=== PATIENT | female | born 1945 | race Caucasian/White ===

== ENCOUNTER 2022-11-20 09:04 | Outpatient (OUT) | payer MEDICARE, SELFPAY ==
[2022-11-20 09:32] LABS: Basophils Absolute Auto 0.1 10^3/uL (0.0-0.1); Eosinophils Absolute Auto 0.2 10^3/uL (0.0-0.7); Eosinophils Percent Auto 3.9 % (0.9-7.0); Hematocrit 36.1 % (36.0-48.0); Hemoglobin 11.9 g/dL (12.0-16.0); Immature Granulocytes Abs Auto 0.01 10^3/uL (0.00-0.03); Immature Granulocytes Pct Auto 0.2 % (0.0-0.5); Lymphocytes Absolute Auto 1.9 10^3/uL (1.2-3.8); Lymphocytes Percent Auto 38.9 % (20.5-60.0); Mean Corpuscular Hemoglobin 31.3 pg (26.7-34.0); Mean Platelet Volume 9.3 fL (9.5-13.5); Monocytes Absolute Auto 0.5 10^3/uL (0.3-0.8); Neutrophils Absolute Auto 2.2 10^3/uL (1.4-6.5); Platelet Count 220 10^3/uL (150-450); Red Cell Distribution Width 12.1 % (11.0-15.0); White Blood Count 4.8 10^3/uL (4.0-11.0)
[2022-11-20 10:19] LABS: Alanine Aminotransferase 27 U/L (14-59); Albumin Globulin Ratio 1.1; Albumin Level 3.7 g/dL (3.4-5.0); Alkaline Phosphatase 66 U/L (46-116); Anion Gap 9.4; Aspartate Amino Transferase 21 U/L (15-37); BUN Creatinine Ratio 24.4; Bilirubin Direct 0.1 mg/dL (0.0-0.2); Bilirubin Total 0.7 mg/dL (0.2-1.0); Calcium 8.9 mg/dL (8.5-10.1); Carbon Dioxide 29.8 mmol/L (21.0-32.0); Chloride 104 mmol/L (98-107); Chol HDL Ratio 3.5; Cholesterol 152 mg/dL (<=200); Estimated GFR (African America >60 (>=60); Estimated GFR (Non-African Ame >60 (>=60); Globulin 3.5 g/dL; Glucose 91 mg/dL (74-106); HDL Cholesterol 44 mg/dL (40-60); Potassium 4.2 mmol/L (3.5-5.1); Sodium 139 mmol/L (136-145); Thyroid Stimulating Hormone 0.581 uIU/mL (0.358-3.740); Total Protein 7.2 g/dL (6.4-8.2); Triglycerides 35 mg/dL (<=150)
== END 2022-11-20 09:05 | disposition home or self-care (01) ==
LOC: LAB 09:10
PROVIDERS: PCP Family Medicine; Visit Provider Family Medicine
DX: Z79.899 Other long term (current) drug therapy (principal); Z13.220 Encounter for screening for lipoid disorders; R00.2 Palpitations
CPT/HCPCS: 36415; 80048; 80061; 80076; 84443; 85025

== ENCOUNTER 2024-12-10 08:11 | Outpatient (OUT) | payer MEDICARE, SELFPAY ==
--- OUTSIDE RECORDS SUMMARY | 2024-12-10 08:16 | XMS_ITS | Encounter Summary ---
Author Organization [facility] Address [address] [place] [address] Care Team Providers Care Wire Weaver Helper Name Role Phone Tomas Gomez MD Primary Care Provider [phone] Tomas Gomez MD Primary Care Provider [phone] Encounter Details Date Type Department Care Team (Late st Contact Info) Description 11/20/2022 Abstract [facility] [address] [place] [address] Mely Salas MD [address] [place] [address] Social History Tobacco Use Types Packs/Day Years Used Date Smoking Tobacco: Never Smokeless Tobacco: Never Tobacco Cessation:Counseling Given: Not Answered Comments Unknown Sex and Gender Information Value Date Recorded Sex Assigned at Female 12/26/2022 10:22 AM EDT Legal Sex Female 7:10 PM EDT Gender Identity Female 07/02/2022 7:10 PM EDT Sexual Orientation Straight 12/26/2022 10 :22 AM EDT documented as of this encounter Plan of Treatment Upcoming Encounters Date Type Department Care Team (Late st Contact Info) Description 12/13/2024 10:45 AM EDT Office Visit [facility] [address] [place] [phone] Tomas Gomez MD [address] [place] [address] 06/06/2025 10:30 AM EST Office Visit [facility] [place] [facility] [address] [place] [address] Shonda Paz DO [address] [place] [address] 08/16/2025 10:05 AM EDT Office Visit [facility] [place] [facility] [address] [place] [address] Mely Salas MD [address] [place] [address] documented as of this encounter Visit Diagnoses Not on filedocumented in this encounter Care Teams Wire Weaver Helper Relationship Specialty Start Date End Date Tomas Gomez MD PCP - General Family Medicine 04/20/22 06/01/23 Tomas Gomez MD [address] [place] [address] PCP - General Family Medicine 06/02/23 documented as of this encounter
--- OUTSIDE RECORDS SUMMARY | 2024-12-10 08:16 | XMS_ITS | Clinical Summary ---
Author Organization [employer] [facility] tem Address [id number] [place] [address] Care Team Providers Care Physics Teacher Name Role Phone Tomas Gomez MD Primary Care Provider [phone] Family History Medical History Relation Name Comments Breast cancer Neg Hx Social History Tobacco Use Types Packs/Day Years Used Date Smoking Tobacco: Never Assessed Childcare Answer Date Recorded Childcare Unknown 09/29/2018 Employment Answer Date Recorded Employment Unknown 09/29/2018 Purpose - Life Answer Date Recorded Purpose and direction in life Unknown Comments No Sex and Gender Information Value Date Recorded Sex Assigned at Not on file Legal Sex Female 11:41 AM EDT Gender Identity Not on file Sexual Orientation Not on file Last Filed Vital Signs Vital Sign Reading Time Taken Comments Blood Pressure - - Pulse - - Temperature - - Respiratory Rate - - Oxygen Saturation - - Inhaled Oxygen Concentration - - Weight 54.4 kg (120 lb) 06/11/2023 8:46 AM EST Height 165.1 cm (5' 5 ) 06/11/2023 8:46 AM EST Body Mass Index 19.97 06/11/2023 8:46 AM EST Plan of Treatment Health Maintenance Due Date Last Done Comments Depression Screening 1957 Tobacco Screening 1957 Fall Risk Screening 09/02/2011 Zoster (Shingles) Vaccine (2 of 3) 08/21/2012 06/26/2012 COVID-19 Vaccine (2023-2 5 season) 2024 03/09/2024, 03/16/2023, 02/05/2022, Additional history exists Influenza Vaccine 12/19/2024 03/09/2024, , 02/05/2022, Additional history exists DTaP,Tdap and Td Vaccines (2 - Td or Tdap) 11/20/2031 11/19/2021 Medical Devices Not on file Insurance [facility] MEDICARE Care Teams Physics Teacher Relationship Specialty Start Date End Date Tomas Gomez MD PCP - General Family Medicine 02/15/18
--- OUTSIDE RECORDS SUMMARY | 2024-12-10 08:16 | XMS_ITS | Clinical Summary ---
Author Organization [facility] Address [address] [place] [address] Care Team Providers Care Control Systems Specialist Name Role Phone Tomas Gomez MD Primary Care Provider [phone] Allergies Active Allergy Reactions Criticality Noted Date Comments Aspirin Unknown 10/23/2022 Ciprofloxacin Anaphylaxis,Unknown High 11/25/2016 Pain, vaginal infection, personality change Minocycline Hcl Er Unknown 10/23/2022 Irregular heart rate Penicillins Hives,Unknown 11/25/2016 Rash Medications cyanocobalamin (Vitamin B-12) 100 MCG tablet Take 100 mcg by mouth Daily Active co-enzyme Q-10 30 MG capsule Take 30 mg by mouth Daily Active Active Problems Problem Noted Date Diagnosed Date Osteopenia of lumbar spine 06/24/2024 Medicare annual wellness visit, subsequent 06/14 Assessment & Plan (06/14/2024 12:03 PM EST): Reviewed labs. Discussed proper diet and regular aerobic exercise. Need aerobic exercise 5-6 days a week for 30 minutes at a time. Smaller portions and limit total calories. Tetanus every 10 years. Advised not to smoke. Chronic left hip pain 06/14/2024 Assessment & Plan (06/14/2024 12:03 PM EST): Pain likely relate to lumbar pathology. Check x-ray. Discussed PT but declined. Use OTC PRN. Encounter for long-term current use of medicatio n 12/03/2023 Cervical stenosis of spine 06/10/2023 Assessment & Plan (12/07/2023 9:53 AM EDT): Mild pain but tolerable with OTC and continue. Increase activity and walk regularly. Assessment & Plan (06/10/2023 2:26 PM EST): Mild pain but tolerable with OTC and continue. Increase activity and walk regularly. Degenerative lumbar spinal stenosis 06/10/2023 Assessment & Plan (06/14/2024 12:03 PM EST): Pain likely relate to lumbar pathology. Check x-ray. Discussed PT but declined. Use OTC PRN. Assessment & Plan (12/07/2023 9:53 AM EDT): Mild pain but tolerable with OTC and continue. Increase activity and walk regularly. Assessment & Plan (06/10/2023 2:26 PM EST): Mild pain but tolerable with OTC and continue. Increase activity and walk regularly. Heart palpitations 06/10/2023 Idiopathic thrombocytopenic purpura 06/10/2023 Prurigo nodularis 06/10/2023 Allergic rhinitis due to pollen 06/10/2023 Assessment & Plan (12/07/2023 9:53 AM EDT): Symptoms controlled with medication and continue. Assessment & Plan (06/10/2023 2:25 PM EST): Symptoms controlled with medication and continue. Resolved Problems Problem Noted Date Diagnosed Date Resolved Date Retrolisthesis 06/10/2023 06/14/2024 Weakness 06/10/2023 06/14/2024 Encounters Date Type Department Care Team Description 11/29/2024 Telephone [facility] [address] [place] [address] Tomas Gomez MD from Last 3 Months Family History Medical History Relation Name Comments Lung cancer Father Coronary artery disease Mother Dementia Mother Hypertension Mother Thyroid disease Mother resting angina Mother Diabetes Son Melanoma Neg Hx Relation Name Status Comments Father Mother Son Social History Tobacco Use Types Packs/Day Years Used Date Smoking Tobacco: Never Smokeless Tobacco: Never Tobacco Cessation:Counseling Given: Not Answered Alcohol Use Standard Drinks/Week Comments Never 0 (1 standard drink = 0.6 oz pur e alcohol) Caffeine intake: none B1300 Health Literacy Answer Date Recor ded How often do you need to hav e someone help you when you read instructions, pamphlets, or other written material from your doctor or pharmacy? Never 06/12/2024 Social Connection and Isolat ion Panel [NHANES] Answer Date Recorded In a typical week, how many times do you talk on the phone with family, friends, or neighbors? Three times a week 06/12/2024 How often do you get togethe r with friends or relatives? Once a week 06/12/2024 How often do you attend [facility] or methodist services? More than 4 times per year 06/12/2024 Do you belong to any clubs o r organizations such as gnosticism groups, unions, fraternal or athletic groups, or school groups? No 06/12/2024 Attends Club or Organization Meetings Not on gisell e 06/12/2024 Are you , , di vorced, , never , or living with a partner? 06/12/2024 AUDIT-C Answer Date Recorded Q1: How often do you have a drink containing alcohol? Never 06/12/2024 Q2: How many drinks containi ng alcohol do you have on a typical day when you are drinking? Patient does not drink Q3: How often do you have si x or more drinks on one occasion? Never 06/12/2024 Overall Financial Resource Strain (CARDIA) Answe r Date Recorded How hard is it for you to pa y for the very basics like food, housing, medical care, and heating? Not hard at all 06/12/2024 PHQ-2 Answer Date Recorded Patient Health Questionnaire-2 Score 1 06/14/2024 [facility] Occupat ional Health - Occupational Stress Questionnaire Answer Date Recorded Do you feel stress - tense, restless, nervous, or anxious, or unable to sleep at night because your mind is troubled all the time - these days? Only a little 06/12/2024 Exercise Vital Sign Answer Date Recorde d On average, how many days pe r week do you engage in moderate to strenuous exercise (like a brisk walk)? 5 days 06/12/2024 On average, how many minutes do you engage in exercise at this level? 20 min 06/12/2024 Hunger Vital Sign Answer Date Recorded Within the past 12 months, y ou worried that your food would run out before you got the money to buy more. Never true 06/12/19 25 Ran Out of Food in the Last Year Not on file 06/12/2024 PRAPARE - Transportation Answer Date Re corded In the past 12 months, has l ack of transportation kept you from medical appointments or from getting medications? No 05/22 In the past 12 months, has l ack of transportation kept you from meetings, work, or from getting things needed for daily living? No 06/12/2024 Housing Stability Vital Sign Answer Jesse e Recorded In the last 12 months, was t here a time when you were not able to pay the mortgage or rent on time? No 06/04/2023 In the last 12 months, how many places have you lived? 1 06/04/2023 In the last 12 months, was t here a time when you did not have a steady place to sleep or slept in a residential (including now)? No 06/04/2023 Housing Stability Vital Sign Answer Jesse e Recorded In the last 12 months, was t here a time when you were not able to pay the mortgage or rent on time? No 06/12/2024 In the past 12 months, how m any times have you moved where you were living? 0 06/12/2024 At any time in the past 12 m [facility], were you homeless or living in a residential (including now)? No 06/12/2024 Comments Unknown Sex and Gender Information Value Date Recorded Sex Assigned at Female 12/26/2022 10:22 AM EDT Legal Sex Female 7:10 PM EDT Gender Identity Female 07/02/2022 7:10 PM EDT Sexual Orientation Straight 12/26/2022 10 :22 AM EDT Last Filed Vital Signs Vital Sign Reading Time Taken Comments Blood Pressure 100/54 06/14/2024 10:59 AM EST Pulse 61 06/14/2024 10:59 AM EST Temperature 35.8 C (96.4 F) 06/14/2024 10:59 AM EST Respiratory Rate 20 06/14/2024 10:59 AM EST Oxygen Saturation 99% 06/14/2024 10:59 AM EST Inhaled Oxygen Concentration - - Weight 52.2 kg (115 lb) 06/14/2024 10:59 AM EST Height 166.4 cm (5' 5.5 ) 06/14/2024 10:59 AM ES T Body Mass Index 18.85 06/14/2024 10:59 AM EST Plan of Treatment Upcoming Encounters Date Type Department Care Team (Late st Contact Info) Description 12/13/2024 10:45 AM EDT Office Visit [facility] [address] [place] [address] Tomas Gomez MD [address] [place] [address] 06/06/2025 10:30 AM EST Office Visit [facility] [address] [place] [address] Shonda Paz DO [address] [place] [address] 08/16/2025 10:05 AM EDT Office Visit [facility] [address] [place] [address] Mely Salas MD [address] [place] [address] Health Maintenance Due Date Last Done Comments Skin Cancer Screening 09/02/1946 Influenza Vaccine (#1) 2024 3, 02/05/2022, 01/09/2021, Additional history exists Medicare Annual Wellness (AWV) 06/14/2025 06/14/2024 , 05/12/2024 Pneumococcal Vaccine: 65+ Years Completed 0, 02/02/2019 Insurance MEDICARE [facility] Care Teams Control Systems Specialist Relationship Specialty Start Date End Date Tomas Gomez MD [address] [place] [address] PCP - General Family Medicine 06/02/23
--- OUTSIDE RECORDS SUMMARY | 2024-12-10 08:16 | XMS_ITS | Encounter Summary ---
Author Organization [facility] Address [address] [place] [address] Care Team Providers Care Hand Cigar Making Supervisor Name Role Phone Tomas Gomez MD Primary Care Provider [phone] Encounter Details Date Type Department Care Team (Late st Contact Info) Description 06/23/2024 External Result Encounter [facility] External Department Unsolicited Tomas Gomez MD [address] [place] [address] Social History Tobacco Use Types Packs/Day Years Used Date Smoking Tobacco: Never Smokeless Tobacco: Never Alcohol Use Standard Drinks/Week Comments Never 0 [...] week 06/12/2024 How often do you attend chur ch or yarsani services? More than 4 times per year [...] Recorded Patient Health Questionnaire-2 Score 1 06/14/2024 [facility]at ional Health - Occupational Stress [...] place to sleep or slept in a penitentiary (including now)? No 06/04/2023 Housing Stability Vital Sign Answer Jesse e Recorded In the last 12 months, was t here a time when you were not able to pay the mortgage or rent on time? No 06/12/2024 In the past 12 months, how m any times have you moved where you were living? 0 06/12/2024 At any time in the past 12 m [facility], were you homeless or living in a penitentiary (including now)? No 06/12/2024 Comments Unknown Sex [...] Office Visit [facility] [address] [place] [address] Tomas Gomez MD [address] [place] [address] 06/06/2025 10:30 AM EST Office Visit [facility] [address] [place] [address] Shonda Paz DO [address] [place] [address] 08/16/2025 10:05 AM EDT Office Visit [facility] [address] [place] [address] Mely Salas MD [address] [place], [place] [phone] documented as of this encounter Procedures Procedure Name Priority Date/Time Associated Diagnosis Comments XR LUMBAR SPINE 2-3 VIEWS 06/23/2024 5:09 PM EST documented in this encounter Results * XR lumbar spine 2 or 3 views (06/23/2024 5:09 PM EST) Anatomical Region Laterality Modality Spine, L-spine Radiographic Kallie ging 06/23/2024 5:09 PM EST Impressions 06/23/2024 5:14 PM EST OSTEOPENIA, SCOLIOSIS AND DEGENERATIVE CHANGES, DESCRIBED. Impression dictated by: Sissy Sy M.D.06/23/2024 5:12 PM Dictation Location: [place] [address] Transcribed By: [facility] 06/23/241711 Dictated By: Sissy Sy MD 06/23/241708 Signed By: <Electronically signed by MD Sissy Sy in OV> 06/23/24 171 Narrative 06/23/2024 5:14 PM EST [facility] [place] [address] [place] [address] XRay Report Signed Patient: Rylee Ruiz MR#: [id number] : 1945 Acct:[id number] Age/Sex: 78 / F ADM Date: 06/23/24 Loc: XD Room: Type: [facility] Attending Dr: Tomas Gomez MD Copies to: Tomas Gomez MD Ordering Provider: Tomas Gomez MD Date of Service: 06/23/24 XR/XR lumbar spine 2-3V*: M48.061 LUMBAR SPINE - 2 views COMPARISON: None CLINICAL DATA: Left hip tingling and intermittent radiation down the leg. No reported injury. Standing AP and lateral views were obtained. There is osteopenia. There is slight levoscoliotic curvature. There is also slight reversal the normal lumbar lordosis. There are minimal retrolisthesis of L2 on L3. There is approximately 5 mm retrolisthesis of L3 on L4 and 6 mm retrolisthesis of L4 and L5. No acute compression fractures are identified. There is disc space narrowing at L3-4 and L4-5, as well as to a lesser extent at L2-3. Endplate spurring is present. There is lower lumbar facet disease. The SI joints are intact. No paraspinal soft tissue abnormalities are seen. XR/XR lumbar spine 2-3V* Procedure Note Radiology, Radiologist, - 06/23/2024 [facility] [place] [address] [place] [address] XRay Report Signed Patient: Rylee Ruiz KMR#: [id number] : 7Acct:[id number] Age/Sex: 78 / FADM Date: 06/23/24 Loc: XD Room:Type: [facility] Attending Dr: Tomas Gomez MD Copies to: Tomas Gomez MD Ordering Provider: Tomas Gomez MD Date of Service: 06/23/24 XR/XR lumbar spine 2-3V*: M48.061 LUMBAR SPINE - 2 views COMPARISON: None CLINICAL DATA: Left hip tingling and intermittent radiation down the leg.No reported injury. Standing AP and lateral views were obtained. There is osteopenia. Thereis slight levoscoliotic curvature. There is also slight reversal the normal lumbar lordosis.There are minimal retrolisthesis of L2 on L3. There is approximately 5 mm retrolisthesis ofL3 on L4 and 6 mm retrolisthesis of L4 and L5. No acute compression fractures areidentified. There is disc space narrowing at L3-4 and L4-5, as well as to a lesser extent at L2-3.Endplate spurring is present. There is lower lumbar facet disease. The SI joints are intact. Noparaspinal soft tissue abnormalities are seen. XR/XR lumbar spine 2-3V* IMPRESSION: OSTEOPENIA, SCOLIOSIS AND DEGENERATIVE CHANGES, DESCRIBED. Impression dictated by: Sissy Sy M.D.06/23/2024 5:12 PM Dictation Location: [place] [address] Transcribed By: [facility] 06/23/24 171 Dictated By: Sissy Sy MD 06/23/24 170 Signed By: <Electronically signed by MD Sissy Sy in OV> 06/23/24 171 us Tomas Gomez MD IMG XR PROCEDURES Final Result documented in this encounter Visit Diagnoses Not on filedocumented in this encounter Additional Health Concerns Assessment Noted Time PHQ-9 Depression Total Score: 4 06/14/19 25 11:00 AM EST documented as of this encounter Care Teams Hand Cigar Making Supervisor Relationship Specialty Start Date End Date Tomas Gomez MD [address] [place] [address] PCP - General Family Medicine 06/02/23 documented as of this encounter
--- OUTSIDE RECORDS SUMMARY | 2024-12-10 08:16 | XMS_ITS | Encounter Summary ---
Author Organization [facility] Address [address] [place] [address] Care Team Providers Care Gas Tender Name Role Phone Tomas Gomez MD Primary Care Provider [phone] Encounter Details Date Type Department Care Team (Late st Contact Info) Description 11/29/2024 Telephone [facility] [address] [place] [address] Tomas Gomez MD [address] [place] [address] Social History Tobacco Use Types Packs/Day Years [...] often do you attend chur ch or samaritan services? More than 4 times per year 06/12/2024 Do you belong to any clubs o r organizations such as rastafarian groups, unions, fraternal or athletic groups, or [...] Recorded Patient Health Questionnaire-2 Score 1 06/14/2024 [facility] Occupat ional Health - Occupational Stress [...] place to sleep or slept in a long term (including now)? No 06/04/2023 Housing Stability Vital Sign Answer Jesse e Recorded In the last 12 months, was t here a time when you were not able to pay the mortgage or rent on time? No 06/12/2024 In the past 12 months, how m any times have you moved where you were living? 0 06/12/2024 At any time in the past 12 m [facility], were you homeless or living in a long term (including now)? No 06/12/2024 Comments Unknown Sex and Gender Information Value Date Recorded Sex Assigned at Female 12/26/2022 10:22 AM EDT Legal Sex Female 7:10 PM EDT Gender Identity Female 07/02/2022 7:10 PM EDT Sexual Orientation Straight 12/26/2022 10 :22 AM EDT documented as of this encounter Miscellaneous Notes * Telephone Encounter - Tomas Gomez MD - 11/29/2024 4:38 PM EDT Lab order in chart, please fax. * Telephone Encounter - RANDY PALOMO - 11/29/2024 2:08 PM EDT Patient would like order for labs prior to upcoming appointment. Please send to [email or web address] documented in this encounter Plan of Treatment Upcoming Encounters Date Type Department Care Team (Late st Contact Info) Description 12/13/2024 10:45 AM EDT Office Visit [facility] [address] [place] [address] Tomas Gomez MD [address] [place] [address] 06/06/2025 10:30 AM EST Office Visit [facility] [address] [place] [phone] Shonda Paz DO [address] [place] [address] 08/16/2025 10:05 AM EDT Office Visit [facility] [address] [place] [address] Mely Salas MD [address] [place] [address] Scheduled Orders Name Type Priority Associated Diagnoses Orde r Schedule TSH Lab Routine Heart palpitations Expected: 11/29/2024 (Approximate), Expires: 11/29/2025 Basic metabolic panel Lab Routine Encounter for long-term current use of medication Expected: 11/29/2024 (Approximate), Expires: 11/29/2025 CBC and differential Lab Routine Encounter for long-term current use of medication Expected: 11/29/2024 (Approximate), Expires: 11/29/2025 Hepatic function panel Lab Routine Encounter for long-term current use of medication Expected: 11/29/2024 (Approximate), Expires: 11/29/2025 Lipid panel Lab Routine Lipid screening Expected: 11/29/2024 (Approximate), Expires: 11/29/2025 documented as of this encounter Visit Diagnoses Diagnosis Encounter for long-term current use of medication- Primary Heart palpitations Palpitations Lipid screening Screening for lipoid disorders documented in this encounter Additional Health Concerns Assessment Noted Time PHQ-9 Depression Total Score: 4 06/14/19 25 11:00 AM EST documented as of this encounter Care Teams Gas Tender Relationship Specialty Start Date End Date Tomas Gomez MD [address] [place] [address] PCP - General Family Medicine 06/02/23 documented as of this encounter
--- OUTSIDE RECORDS SUMMARY | 2024-12-10 08:17 | XMS_ITS | Encounter Summary ---
Author Organization [facility] Address [address] [place] [address] Care Team Providers Care Willower Name Role Phone Tomas Gomez MD Primary Care Provider [phone] Encounter Details Date Type Department Care Team (Late st Contact Info) Description 06/11/2023 External Result Encounter [facility] [place] [facility] [address] [facility] [address] [facility] [address] [place] [id number] Shonda Paz, DO [address] [place] [address] Social History Tobacco Use Types Packs/Day Years Used Date Smoking Tobacco: Never Smokeless Tobacco: Never Alcohol Use Standard Drinks/Week Comments Never 0 (1 standard drink = 0.6 oz pur e alcohol) Caffeine intake: none Social Connection and Isolat ion Panel [NHANES] Answer Date Recorded In a typical week, how many times do you talk on the phone with family, friends, or neighbors? More than three times a week 06/04/2023 How often do you get togethe r with friends or relatives? Once a week 06/04/2023 How often do you attend chur ch or methodist services? More than 4 times per year 06/04/2023 Do you belong to any clubs o r organizations such as mormon groups, unions, fraternal or athletic groups, or school groups? No 06/04/2023 Attends Club or Organization Meetings Not on gisell e 06/04/2023 Are you , , di vorced, , never , or living with a partner? 06/04/2023 AUDIT-C Answer Date Recorded Q1: How often do you have a drink containing alcohol? Never 06/04/2023 Q2: How many drinks containi ng alcohol do you have on a typical day when you are drinking? Patient does not drink Q3: How often do you have si x or more drinks on one occasion? Never 06/04/2023 Overall Financial Resource Strain (CARDIA) Answe r Date Recorded How hard is it for you to pa y for the very basics like food, housing, medical care, and heating? Not hard at all 06/04/2023 [facility] Occupat ional Health - Occupational Stress Questionnaire Answer Date Recorded Do you feel stress - tense, restless, nervous, or anxious, or unable to sleep at night because your mind is troubled all the time - these days? Only a little 06/04/2023 Exercise Vital Sign Answer Date Recorde d On average, how many days pe r week do you engage in moderate to strenuous exercise (like a brisk walk)? 5 days 06/04/2023 On average, how many minutes do you engage in exercise at this level? 20 min 06/04/2023 Hunger Vital Sign Answer Date Recorded Within the past 12 months, y ou worried that your food would run out before you got the money to buy more. Never true 06/04/19 24 Within the past 12 months, t he food you bought just didn't last and you didn't have money to get more. Never true 06/04/2023 PRAPARE - Transportation Answer Date Re corded In the past 12 months, has l ack of transportation kept you from medical appointments or from getting medications? No 05/21 In the past 12 months, has l ack of transportation kept you from meetings, work, or from getting things needed for daily living? No 06/04/2023 Housing Stability Vital Sign Answer [...] place to sleep or slept in a fci (including now)? No 06/04/2023 Comments Unknown Sex and Gender Information Value [...] 10:45 AM EDT Office Visit [facility] [address] [place] [address] Tomas Gomez MD [address] [place] [address] 06/06/2025 10:30 AM EST Office Visit [facility] [place] [facility] [address] [place] [phone] Shonda Paz DO [address] [place], [place] [phone] 08/16/2025 10:05 AM EDT Office Visit [facility] [place] [facility] [address] [place] [phone] Mely Salas MD [address] [place], [place] [phone] documented as of this encounter Procedures Procedure Name Priority Date/Time Associated Diagnosis Comments DEXA BONE DENSITY 06/16/2023 3:0 5 PM EST BI MAMMOGRAM SCREENING TOMOSYNTHESIS BILATERAL 06/11/2023 9:24 AM EST documented in this encounter Results * DEXA bone density (06/16/2023 3:05 PM EST) Anatomical Region Laterality Modality Body Radiographic Kallie ging 06/16/2023 3:05 PM EST Narrative 06/12/2023 1:10 AM EST THIS EXAM WAS PERFORMED AT [facility] *ADDENDUM*The current National Osteoporosis Foundation guide recommends treating patients with FRAX ten year risk scores of greater than or equal to 3% for hip fracture or greater than or equal to 20% for major osteoporotic fracture, to reduce their fracture risk. Finalized by Enrique Fofana MD on 06/16/2023 3:04 PM CLINICAL INFORMATION: Screening for osteoporosis; Postmenopausal status, age-related. , TECHNIQUE: Dual X-ray Absorptiometry (DXA) was performed. COMPARISON: 04/04/2021 FINDINGS: LUMBAR SPINE (L1-L2): BMD is 0.958 gm/cm2. T-score is -1.8. RIGHT TOTAL FEMUR: BMD is 0.853 gm/cm2. T-score is -1.2. No significant change is demonstrated with a 2020 exam. Comparison of absolute values for mean total hip density calculates only an interval 2.4% decrease. The estimated 10-year probability for a major osteoporotic fracture (utilizing FRAX) is 7.7% and for a hip fracture is 1.1%. IMPRESSION: Osteopenia (based on WHO criteria). WHO CLASSIFICATION: Normal: T-score -1.0 or above Osteopenia: T-score -1.1 to < 2.5 Osteoporosis: T-score -2.5 or lower Secondary causes of bone loss should be evaluated if clinically indicated since the etiology of low BMD cannot be determined by BMD measurement alone. Finalized by Scar Rick MD on 06/12/2023 1:10 AM Procedure Note Radiology, Radiologist, MD - 06/16/2023 THIS EXAM WAS PERFORMED AT [facility] *ADDENDUM*The current National Osteoporosis Foundation guide recommendstreating patients with FRAX ten year risk scores of greater than or equalto 3% for hip fracture or greater than or equal to 20% for majorosteoporotic fracture, to reduce their fracture risk. Finalized by Enrique Fofana MD on 06/16/2023 3:04 PM CLINICAL INFORMATION: Screening for osteoporosis; Postmenopausal status, age-related. , TECHNIQUE: Dual X-ray Absorptiometry (DXA) was performed. COMPARISON: 04/04/2021 FINDINGS: LUMBAR SPINE (L1-L2): BMD is 0.958 gm/cm2. T-score is -1.8. RIGHT TOTAL FEMUR: BMD is 0.853 gm/cm2. T-score is -1.2. No significant change is demonstrated with a 2020 exam. Comparison ofabsolute values for mean total hip density calculates only an interval2.4% decrease. The estimated 10-year probability for a major osteoporotic fracture(utilizing FRAX) is 7.7% and for a hip fracture is 1.1%. IMPRESSION: Osteopenia (based on WHO criteria). WHO CLASSIFICATION: Normal: T-score -1.0 or above Osteopenia: T-score -1.1 to < 2.5 Osteoporosis: T-score -2.5 or lower Secondary causes of bone loss should be evaluated if clinically indicatedsince the etiology of low BMD cannot be determined by BMD measurementalone. Finalized by Scar Rick MD on 06/12/2023 1:10 AM Shonda Paz DO [facility] [place]XA PROCEDURES Edited R esult - Final * Bilateral screening mammogram with tomosynthesis (06/11/2023 9:24 AM EST) Anatomical Region Laterality Modality Breast Bilateral Mammography 06/11/2023 9:24 AM EST Narrative 06/11/2023 9:23 AM EST THIS EXAM WAS PERFORMED AT [facility] EXAM: MAMM SCREENING BILATERAL W CAD, 06/11/2023 8:41 AM CLINICAL INDICATIONS: Screening, Encounter for screening mammogram for malignant neoplasm of breast. COMPARISON: Mammogram 05/15/2022 TECHNIQUE: Bilateral digital tomosynthesis MLO and CC views of the breasts were obtained, with creation of synthetic 2D views. Computer aided detection was utilized. FINDINGS: There are scattered areas of fibroglandular density. There are no suspicious masses, calcifications, or areas of architectural distortions. IMPRESSION: No mammographic evidence of malignancy. BI-RADS: BI-RADS 1 - Negative Recommendation: Routine screening mammogram in 1 year. Finalized by Osvaldo Hickman MD on 06/11/2023 9:23 AM 1 b MAMM 1 YR Procedure Note Radiology, Radiologist, - 06/11/2023 THIS EXAM WAS PERFORMED AT [facility] EXAM: MAMM SCREENING BILATERAL W CAD, 06/11/2023 8:41 AM CLINICAL INDICATIONS: Screening, Encounter for screening mammogram formalignant neoplasm of breast. COMPARISON: Mammogram 05/15/2022 TECHNIQUE: Bilateral digital tomosynthesis MLO and CC views of the breasts wereobtained, with creation of synthetic 2D views. Computer aided detectionwas utilized. FINDINGS: There are scattered areas of fibroglandular density. There are no suspicious masses, calcifications, or areas of architecturaldistortions. IMPRESSION: No mammographic evidence of malignancy. BI-RADS: BI-RADS 1 - Negative Recommendation: Routine screening mammogram in 1 year. Finalized by Osvaldo Hickman MD on 06/11/2023 9:23 AM 1 b MAMM 1 YR us Shonda Paz DO IMG BI PROCEDURES Final Res ult documented in this encounter Visit Diagnoses Not on filedocumented in this encounter Care Teams Willower Relationship Specialty Start Date End Date Tomas Gomez MD [address] [place] [address] PCP - General Family Medicine 06/02/23 documented as of this encounter
--- OUTSIDE RECORDS SUMMARY | 2024-12-10 08:17 | XMS_ITS | Clinical Summary ---
Author Organization 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 Last address used for calculation Not on file 03/27/2020 Comments No Sex and Gender Information Value Date Recorded Sex Assigned at Not on file Legal Sex Female 8:10 AM EDT Gender Identity Not on file Sexual Orientation Not on file Last Filed Vital Signs Vital Sign Reading Time Taken Comments Blood Pressure 109/65 03/09/2017 1:00 PM EST Pulse 86 03/09/2017 1:00 PM EST Temperature 36.5 C (97.7 F) 03/09/2017 1:00 PM EST Respiratory Rate 18 03/09/2017 1:00 PM EST Oxygen Saturation 98% 12/16/2016 9:14 AM EDT RA Inhaled Oxygen Concentration - - Weight 57.4 kg (126 lb 8 oz) 01/27/2017 8:54 AM EDT Height 165.1 cm (5' 5 ) 01/27/2017 8:54 AM EDT Body Mass Index 21.05 01/27/2017 8:54 AM EDT Plan of Treatment Health Maintenance Due Date Last Done Comments Anxiety Screening 1963 Depression Screening 1963 DTaP,Tdap,Td Vaccine (1 - Tdap) 1965 Pneumococcal Vaccine: 50+ (1 of 1 - PCV) 1996 Shingrix Vaccine (1 of 2) 1996 Bone Density Screening 09/02/2011 Diabetes Screening 11/04/2020 11/04/2017, 0 09/09/2017, 07/14/2017, Additional history exists RSV Vaccine (1 - 1-dose 75+ series) 2021 Advance Directive Discussion 04/20/2024 Influenza Vaccine (#1) 2024 Hepatitis C Screening Completed 11/26/2016 Procedures Procedure Name Priority Date/Time Associated Diagnosis Comments BASIC METABOLIC PANEL Routine 11/04/2017 1:07 PM EDT Acute ITP (HCC) HEP REMOTE PANEL BL Routine 11/26/2016 9 :46 AM EDT Acute ITP (HCC) from Last 3 Months or Most Recently Relevant to Health Maintenance Results * (ABNORMAL) BASIC METABOLIC PNL (11/04/2017 1:07 PM EDT) Glucose 111(H) 74 - 99 mg/dL 11/05/2017 8:52 AM EDT [facility] Comment: The [place] Diabetes Association (ADA) provides guidance for cutoff values for fasting glucose and random glucose. The ADA defines fasting as no caloric intake for at least 8 hours. Fasting plasma glucose results between 100 to 125 mg/dL indicate increased risk for diabetes (prediabetes). Fasting plasma glucose results greater than or equal to 126 mg/dL meet the criteria for diagnosis of diabetes. In the absence of unequivocal hyperglycemia, results should be confirmed by repeat testing. In a patient with classic symptoms of hyperglycemia or hyperglycemic crisis, random plasma glucose results greater than or equal to 200 mg/dL meet the criteria for diagnosis of diabetes. Reference: Standards of Medical Care in Diabetes 2016, [place] Diabetes Association. Diabetes Care. 2016.39(Suppl 1). BUN 20 7 - 21 mg/dL 11/05/2017 8:52 AM EDT [facility] Creatinine 0.97(H) 0.58 - 0.96 mg/dL 11/05/2017 8:52 AM EDT [facility] Sodium 137 136 - 144 mmol/L 11/05/2017 8:52 AM EDT [facility] Potassium 4.3 3.7 - 5.1 mmol/L 11/05/2017 8:52 AM EDT [facility] Chloride 98 97 - 105 mmol/L 11/05/2017 8:52 AM EDT [facility] CO2 28 22 - 30 mmol/L 11/05/2017 8:52 AM EDT [facility] Anion Gap 11 9 - 18 mmol/L 11/05/2017 8:52 AM EDT [facility] Calcium 9.8 8.5 - 10.2 mg/dL 11/05/2017 8:52 AM EDT [facility] eGFR- >60 11/05/2017 8:52 AM EDT [facility] eGFR-All Other Races 57 . 11/05/2017 8:52 AM EDT [facility] Comment: eGFR (Estimated GFR) Units of measure: mL/min/1.73 meters squared eGFR is derived from the reexpressed MDRD Study equation using the following parameters: serum creatinine, age, gender and race. The creatinine assay has been calibrated to be traceable to IDMS. An eGFR <60 mL/min/1.73m2 for >3 months is consistent with chronic kidney disease. Refer to KDOQI guidelines for clinical interpretation. In patients with unstable renal function, e.g. those with acute kidney injury, the eGFR may not accurately reflect actual GFR. Blood specimen (specimen) BLOOD SPECIMEN / Unknown 11/04/2017 1:07 PM EDT 11/04/2017 1:09 PM EDT us Osmin Walsh DO LABORATORY Final Res ult [facility] [address] [place] [address] * (ABNORMAL) HEP REMOTE PANEL BL (11/26/2016 9:46 AM EDT) Hep B Core Ab, Total Positive(A) Negative 11/26/2016 10:09 PM EDT [facility] Comment:Result rechecked. Hep C Antibody IA Negative Negative 11/26/2016 7:33 PM EDT [facility] HBsAg Negative Negative 11/26/2016 7:33 PM EDT [facility] Hep B Surface Ab, Qual Positive(A) Negative 11/26/2016 7:33 PM EDT [facility] Comment: These results are consistent with previous exposure and/or immunity to the hepatitis B virus antigen. Blood specimen (specimen) BLOOD SPECIMEN / Unknown 11/26/2016 9:46 AM EDT 11/26/2016 9:48 AM EDT us Osmin Walsh DO LABORATORY Final Res ult [facility] [address] [facility] [place] [address] from Last 3 Months or Most Recently Relevant to Health [place] [phone] [place] [address] [facility] Address: [address] [place] [address] Care Teams Swing Frame Grinder Operator Relationship Specialty Start Date End Date Tomas Gomez MD [address] [place] [address] PCP - General Family Medicine 09/10/17
[2024-12-10 08:54] LABS: Hematocrit 35.6 % (36.0-48.0); Hemoglobin 11.8 g/dL (12.0-16.0); Immature Granulocytes Abs Auto 0.01 10^3/uL (0.00-0.03); Immature Granulocytes Pct Auto 0.2 % (0.0-0.5); Lymphocytes Absolute Auto 1.9 10^3/uL (1.2-3.8); Mean Corpuscular HGB Conc 33.1 g/dL (29.9-35.2); Mean Corpuscular Hemoglobin 31.6 pg (26.7-34.0); Mean Corpuscular Volume 95.4 fL (81.0-99.0); Platelet Count 236 10^3/uL (150-450); Red Blood Count 3.73 10^6/uL (4.20-5.40); White Blood Count 5.0 10^3/uL (4.0-11.0)
[2024-12-10 09:43] LABS: Alanine Aminotransferase 26 U/L (14-59); Albumin Globulin Ratio 1.1; Albumin Level 3.8 g/dL (3.4-5.0); Alkaline Phosphatase 63 U/L (46-116); Anion Gap 11.4; Aspartate Amino Transferase 21 U/L (15-37); Blood Urea Nitrogen 23.0 mg/dL (7.0-18.0); Calcium 9.2 mg/dL (8.5-10.1); Carbon Dioxide 30.1 mmol/L (21.0-32.0); Chloride 106 mmol/L (98-107); Cholesterol 154 mg/dL (<=200); Estimated GFR (African America >60 (>=60 mL/min/1.73m^2); Estimated GFR (Non-African Ame >60 (>=60 mL/min/1.73m^2); Globulin 3.6 g/dL; Glucose 91 mg/dL (74-106); HDL Cholesterol 47 mg/dL (40-60); Potassium 4.5 mmol/L (3.5-5.1); Sodium 143 mmol/L (136-145); Thyroid Stimulating Hormone 1.065 uIU/mL (0.358-3.740); Total Protein 7.4 g/dL (6.4-8.2); Triglycerides 36 mg/dL (<=150); VLDL CHOLESTEROL 7.2 mg/dL
== END 2024-12-10 08:12 | disposition home or self-care (01) ==
PROVIDERS: PCP Family Medicine; Visit Provider Family Medicine
DX: R00.2 Palpitations (principal); Z79.899 Other long term (current) drug therapy; Z13.220 Encounter for screening for lipoid disorders
CPT/HCPCS: 36415; 80048; 80061; 80076; 84443; 85025